=== PATIENT | male | born 1970 | race Caucasian/White ===

== ENCOUNTER → 2019-01-02 | Day surgery (SDC) | payer BC ==
[~2019-01-02] MED LIST: ANESTHESIA TRAY IN PYXIS 1 EA TRAY MC ONE; BUPIVACAINE 0.25% 75 MG/30 ML VIAL ONE; EPINEPHRINE (1:1000) 1 MG/ML AMPUL ONE; FENTANYL PF 100MCG/2ML AMPUL ONE; HYDROMORPHONE 1 MG/1 ML DISP.SYRIN ONE; HYDROMORPHONE INJ 2 MG/ML DISP.SYRIN ONE; LIDOCAINE HCL/PF 1% 30 ML SDV ONE; MIDAZOLAM HCL 2 MG/2ML VIAL ONE; methylPREDNISolone ACETATE 80 MG/ML VIAL ONE; oxyCODONE/APAP (5/325 MG) 1 UDTAB TABLET ONE; oxyCODONE/APAP (5/325 MG) 1 UDTAB TABLET PO PRN
== END | disposition home or self-care (01) ==
LOC: DS 05:41
PROVIDERS: ATTEND Specialist
DX: M75.42 Impingement syndrome of left shoulder (principal); M75.82 Other shoulder lesions, left shoulder; M65.812 Other synovitis and tenosynovitis, left shoulder; J45.909 Unspecified asthma, uncomplicated; F32.9 Major depressive disorder, single episode, unspecified; Z79.899 Other long term (current) drug therapy
CPT/HCPCS: 88304-TC; 88311-TC; A4217; A4565; A6253; A6402; J0171; J0360; J0690; J1040; J1100; J1170; J1200; J2250; J2405; J2704; J3010; J3490; J7120